=== PATIENT | female | born 1955 | race African-American/Black ===

== ENCOUNTER 2016-09-17 18:01 | Emergency (ER) ==
[2016-09-17 18:10] VITALS: BP 126/61; TEMP 99.6; BMI 24.9
--- NOTE | 2016-09-17 18:19 | ED.PDOC ---
General Stated Complaint: Right lower abdominal pain; started AM Time Seen by Physician: 18:18 Mode of Arrival: Wheelchair Information Source: Patient Exam Limitations: No limitations Nursing and Triage Documentation Reviewed and Agree: Yes <YUMIKO LORA - Last Filed: 09/17/16 18:18> <DANDRE GRAYSON Filed: 09/17/16 21:24> ED Provider: Dr. DANDRE GRAYSON Chief Complaint: Abdominal Pain Primary Care Provider: MARCE ROCHA[facility] Review of Systems - Review Of Systems Constitutional: Reports: Fever Respiratory: Reports: No symptoms GI: Reports: Abdominal pain, Nausea, Vomiting Skin: Reports: No symptoms Neurological: Reports: No symptoms All Other Systems: Reviewed and Negative <DANDRE GRAYSON Filed: 09/17/16 21:24> Past Medical History - Past Medical History Endocrine: Reports: Other Cardiovascular: Reports: Hypertension, Other Respiratory: Reports: Unknown Hematological: Reports: Unknown Gastrointestinal: Reports: Other Genitourinary: Reports: Other Neuro/Psych: Reports: Other Musculoskeletal: Reports: Other Cancer: Reports: Other Last Menstrual Period: hysterectomy - Surgical History General Surgical History: Reports: Unknown - Family History Family History: Reports: Unknown - Social History Smoking Status: Current every day smoker, Light tobacco smoker Hx Substance Use: No Alcohol Screening: Occasionally <YUMIKO LORA - Last Filed: 09/17/16 18:18> Physical Exam - Physical Exam Appearance: Ill-appearing Ill-appearing: Moderate Pain Distress: Severe Respiratory: Airway patent, Breath sounds clear, Breath sounds equal, Respirations nonlabored Cardiovascular: RRR, Pulses normal, No rub, No murmur GI/: Soft, Nontender, No masses, Bowel sounds normal, No Organomegaly Musculoskeletal: Normal strength, ROM intact, No edema, No calf tenderness Skin: Warm, Dry, Normal color Neurological: Sensation intact, Motor intact, Reflexes intact, Cranial nerves intact, Alert, Oriented Psychiatric: Anxious <DANDRE GRAYSON Last Filed: 09/17/16 21:24> Interpretation - Radiology Interpretation Radiology Interpretation By: Radiologist Radiology Results: Positive (Acute Appendicitis) <DANDRE GRAYSON Last Filed: 09/17/16 21:24> Critical Care Note - Critical Care Note Total Time (mins): 30 <DANDRE GRAYSON Filed: 09/17/16 21:24> Course - Course Hematology/Chemistry: 09/17/16 18:36 09/17/16 18:36 <DANDRE GRAYSON - Last Filed: 09/17/16 21:24> - Course Orders, Labs, Meds: Lab Review 09/17/16 09/17/16 18:36 19:45 WBC 10.36 H RBC 3.90 L Hgb 12.0 Hct 35.6 L MCV 91.3 MCH 30.8 MCHC 33.7 RDW Coeff of Pelon 13.5 Plt Count 262 Immature Gran % (Auto) 0.3 Neut % (Auto) 66.1 Lymph % (Auto) 22.7 [place] % (Auto) 10.0 Eos % (Auto) 0.6 Baso % (Auto) 0.3 Immature Gran # (Auto) 0.0 Neut # 6.9 Lymph # 2.4 [place] # 1.0 Eos # 0.1 Baso # 0.0 Sodium 136 Potassium 3.6 Chloride 100 Carbon Dioxide 26 Anion Gap 13.6 BUN 13 Creatinine 1.06 Estimated GFR (MDRD) 64.00 BUN/Creatinine Ratio 12.26 Glucose 107 Calcium 9.1 Total Bilirubin 0.67 AST 20 ALT 18 Alkaline Phosphatase 62 Total Protein 7.1 Albumin 3.3 L Globulin 3.8 Albumin/Globulin Ratio 0.87 Urine Color Yellow Urine Clarity Clear Urine pH 8.5 Ur Specific [place] 1.020 Urine Protein 1+ Urine Glucose (UA) Negative Urine Ketones Trace Urine Blood 1+ Urine Nitrite Negative Urine Bilirubin Negative Urine Urobilinogen 0.2 Ur Leukocyte Esterase Negative Urine Microscopic RBC 5-10 Ur Squamous Epith Cells 0-2 Orders Category Date Time Status CBC W/ AUTO DIFF Stat LAB 09/17/16 18:36 Completed COMPREHENSIVE METABOLIC PANEL Stat LAB 09/17/16 18:36 Completed URINALYSIS C & S IF INDICATED Stat LAB 09/17/16 19:45 Completed Acetaminophen [Tylenol] MEDS 09/17/16 20:08 Discontinued 650 mg PO ONCE STA Hydromorphone HCl [Dilaudid 1 mg/ml Syringe] MEDS 09/17/16 20:59 Discontinued 1 mg .ROUTE .STK-MED ONE Hydromorphone HCl [Dilaudid 1 mg/ml Syringe] MEDS 09/17/16 20:59 Discontinued 1 mg IVP ONCE STA Ketorolac Tromethamine [Toradol] MEDS 09/17/16 18:24 Discontinued 15 mg IVP ONCE STA Morphine Sulfate [Morphine 4 mg/ml Syringe] MEDS 09/17/16 19:09 Discontinued 4 mg IVP ONCE STA Ondansetron HCl/Pf [Zofran 4 mg/2 ml] MEDS 09/17/16 18:24 Discontinued 4 mg IVP ONCE STA Sodium Chloride 0.9% [Sodium Chloride] 1,000 ml MEDS 09/17/16 18:[address] ABD/PEL WO RENAL STONE PROT Stat RADS 09/17/16 19:08 Completed Medications Discontinued Medications Generic Name Dose Route Start Last Admin Trade Name Radha PRN Reason Stop Dose Admin Acetaminophen 650 mg 09/17/16 20:08 09/17/16 20:14 Tylenol PO 09/17/16 20:09 650 mg ONCE STA Administration Hydromorphone HCl 1 mg 09/17/16 20:59 09/17/16 21:05 Dilaudid 1 Mg/Ml Syringe IVP 09/17/16 21:00 1 mg ONCE STA Administration Sodium Chloride 1,000 mls @ 1,000 mls/hr 09/17/16 18:24 09/17/16 18:48 Sodium Chloride IV 09/17/16 19:23 1,000 mls/hr BOLUS STA Administration Ketorolac Tromethamine 15 mg 09/17/16 18:24 09/17/16 18:45 Toradol IVP 09/17/16 18:25 15 mg ONCE STA Administration Morphine Sulfate 4 mg 09/17/16 19:09 09/17/16 19:16 Morphine 4 Mg/Ml Syringe IVP 09/17/16 19:10 4 mg ONCE STA Administration Ondansetron HCl 4 mg 09/17/16 18:24 09/17/16 18:47 Zofran 4 Mg/2 Ml IVP 09/17/16 18:25 4 mg ONCE STA Administration Vital Signs: Temp Pulse Resp BP Pulse Ox 09/17/16 18:04 99.6 F 86 20 126/61 100 Departure <YUMIKO LORA - Last Filed: 09/17/16 18:18> - Departure Time of Disposition: 20:56 Pt referred to PMD for follow-up: Yes Pt. Stabilized Within Hospital's Capabilities/Transferred To: [facility] Transfer Form Completed: Yes Disposition Discussed With: Patient <DANDRE GRAYSON - Last Filed: 09/17/16 21:24> - Departure Disposition: TSF SHORT-TRM HOSP Discharge Problem: Acute appendicitis without mention of peritonitis Qualifiers: Acute appendicitis type: with localized peritonitis Qualifier Code: (K35.3) Acute appendicitis with localized peritonitis Condition: Stable Allergies/Adverse Reactions: Allergies bee wasp,fire ants Allergy (Severe, Uncoded 02/09/16 14:29) swelling itching medical alert necklace Home Medications: Ambulatory Orders Gabapentin [Neurontin] 300 mg PO TID 11/20/15 Oxycodone HCl/Acetaminophen [Xartemis Xr 7.5-325 mg Tablet] 1 each PO TID PRN Ranitidine HCl 150 mg PO DIRECTED 09/17/16 Ranitidine HCl 300 mg PO DAILY 09/17/16
[2016-09-17] MEDS ORDERED: SODIUM CHLORIDE 1,000 ML IV STA (18:24)
[2016-09-17] MEDS ORDERED: TORADOL IVP STA (18:24)
[2016-09-17] MEDS ORDERED: ZOFRAN 4 MG/2 ML IVP STA (18:24)
[2016-09-17 18:41] LABS: BASOPHILS % (AUTO) 0.3 % (0.0-3.0); EOSINOPHILS # (AUTO) 0.1 K/ul (0.0-0.7); EOSINOPHILS % (AUTO) 0.6 % (0.0-7.0); HEMATOCRIT 35.6 % (37.0-47.0); IMMATURE GRANULOCYTE % (AUTO) 0.3 % (0.0-5.0); LYMPHOCYTES # (AUTO) 2.4 K/uL (0.60-3.4); LYMPHOCYTES % (AUTO) 22.7 (10.0-50.0); MEAN CORPUSCULAR HEMOGLOBIN 30.8 pg (27.0-31.0); MEAN CORPUSCULAR HGB CONC 33.7 (31.8-35.4); MEAN CORPUSCULAR VOLUME 91.3 fl (81.0-99.0); NEUTROPHILS # (AUTO) 6.9 K/ul (2.0-6.9); NEUTROPHILS % (AUTO) 66.1; PLATELET COUNT 262 10^3/uL (140-440); WHITE BLOOD COUNT 10.36 K/ul (4.6-10.2)
[2016-09-17 18:59] LABS: ALBUMIN 3.3 g/dL (3.4-5.0); ALBUMIN/GLOBULIN RATIO 0.87; ANION GAP 13.6; BILIRUBIN,TOTAL 0.67 mg/dL (0.00-1.20); BUN/CREATININE RATIO 12.26; CALCIUM 9.1 mg/dL (8.2-10.2); CREATININE 1.06 mg/dL (0.60-1.30); POTASSIUM 3.6 mmol/L (3.5-5.10); TOTAL PROTEIN 7.1 g/dL (5.8-8.1)
[2016-09-17] MEDS ORDERED: MORPHINE 4 MG/ML SYRINGE IVP STA (19:09)
[2016-09-17 20:07] LABS: BILIRUBIN,URINE Negative (NEGATIVE); KETONES,URINE Trace (NEGATIVE); LEUKOCYTE ESTERASE ,URINE Negative (NEGATIVE); NITRITE,URINE Negative (NEGATIVE); PH,URINE 8.5 (5-9); PROTEIN,URINE 1+ (NEGATIVE); URINE, BLOOD 1+ (NEGATIVE)
[2016-09-17] MEDS ORDERED: TYLENOL PO STA (20:08)
[2016-09-17 20:10] LABS: ADD URINE MICROSCOPIC YES
--- NOTE | 2016-09-17 20:26 | CT ---
EXAM: CT of the abdomen and pelvis without contrast. HISTORY: Abdominal pain. Right lower quadrant pain. PROCEDURE: Contiguous axial CT images of the abdomen and pelvis without contrast with coronal and s agittal reformats. FINDINGS: The liver, gallbladder, pancreas, spleen, adrenal glands and kidneys are normal in appeara nce. The abdominal aorta is within normal limits in diameter. There are two appendicoliths in the a ppendix. The appendix is enlarged measuring 1.1 cm in diameter with adjacent inflammatory stranding consistent with acute appendicitis. There is diverticulosis of the colon with no evidence of diver ticulitis. No free air in the abdomen or pelvis. There is minimal free fluid in the pelvis. The b ladder is minimally filled which limits the evaluation. The uterus is surgically absent. There are degenerative changes in the spine. Impression: Acute appendicitis as described. Minimal free fluid in the pelvis. Diverticulosis of the colon. Hysterectomy. Critical result: Results discussed with the patient's ER physician on 09/17/2016 at 8:19 p.m.
[2016-09-17] MEDS ORDERED: DILAUDID 1 MG/ML SYRINGE IVP STA (20:59)
[2016-09-17] MEDS ORDERED: DILAUDID 1 MG/ML SYRINGE ONE (20:59)
== END 2016-09-17 21:27 | disposition short-term general hospital (02) ==
LOC: ED 18:01
DX: K35.3 Acute appendicitis with localized peritonitis (principal); I10 Essential (primary) hypertension; F17.210 Nicotine dependence, cigarettes, uncomplicated; Z79.899 Other long term (current) drug therapy
CPT/HCPCS: 36415; 74176; 80053; 81001; 85025; 96361; 96374; 96375; 99285

== ENCOUNTER 2016-09-17 21:26 | Outpatient (CLI) ==
[2016-09-17 18:10] VITALS: BMI 24.9
== END 2016-09-17 21:27 | disposition home or self-care (01) ==
LOC: AMBL 21:26
PROVIDERS: ATTEND Internal Medicine Geriatric Medicine
DX: K35.80 Unspecified acute appendicitis (principal)

== ENCOUNTER 2017-01-15 12:45 | Outpatient (CLI) ==
[2017-01-15 13:18] LABS: BASOPHILS # (AUTO) 0.1 K/uL (0-0.2); BASOPHILS % (AUTO) 0.8 % (0.0-3.0); EOSINOPHILS # (AUTO) 0.1 K/ul (0.0-0.7); EOSINOPHILS % (AUTO) 1.7 % (0.0-7.0); HEMATOCRIT 36.1 % (37.0-47.0); HEMOGLOBIN 11.8 g/dl (12.0-16.0); IMMATURE GRANULOCYTE % (AUTO) 0.3 % (0.0-5.0); LYMPHOCYTES # (AUTO) 2.4 K/uL (0.60-3.4); LYMPHOCYTES % (AUTO) 39.9 (10.0-50.0); MEAN CORPUSCULAR HGB CONC 32.7 (31.8-35.4); MEAN CORPUSCULAR VOLUME 94.8 fl (81.0-99.0); MONOCYTES # (AUTO) 0.6 K/uL (0.4-2.0); MONOCYTES % (AUTO) 10.1 (0-10); NEUTROPHILS # (AUTO) 2.9 K/ul (2.0-6.9); NEUTROPHILS % (AUTO) 47.2; PLATELET COUNT 283 10^3/uL (140-440); RED BLOOD COUNT 3.81 10^6/ul (4.20-5.40); WHITE BLOOD COUNT 6.06 K/ul (4.6-10.2)
[2017-01-15 13:38] LABS: ALBUMIN 3.1 g/dL (3.4-5.0); ALBUMIN/GLOBULIN RATIO 0.72; ANION GAP 13.1; BILIRUBIN,TOTAL 0.5 mg/dL (0.00-1.20); BUN/CREATININE RATIO 17.02; CALCIUM 9.6 mg/dL (8.2-10.2); CHOL/HDL RATIO 4.3 (4.5-5.5); CREATININE 0.94 mg/dL (0.60-1.30); POTASSIUM 4.1 mmol/L (3.5-5.10); TOTAL PROTEIN 7.4 g/dL (5.8-8.1)
== END 2017-01-15 12:46 | disposition home or self-care (01) ==
LOC: LAB 12:45
PROVIDERS: ATTEND Nurse Practitioner Family
DX: E78.5 Hyperlipidemia, unspecified (principal); I10 Essential (primary) hypertension; F41.9 Anxiety disorder, unspecified
CPT/HCPCS: 36415; 80053; 80061; 84443; 85025

== ENCOUNTER 2017-01-19 08:13 | Outpatient (CLI) ==
--- NOTE | 2017-01-20 10:08 | MAMMO ---
EXAM: Digital screening mammogram with 3-D tomosynthesis and CAD HISTORY: Screening mammogram COMPARISON: Mammogram 09/18/2015 FINDINGS: Bilateral CC and MLO views of the breasts were performed digitally and demonstrate predomi nantly fatty breast density. 3-D tomosynthesis is normal. There is no abnormal nodule or calcificati on. There is no significant interval change. IMPRESSION: No suspicious or new nodule or calcification RECOMMENDATION: Annual screening mammogram BIRADS category 1: Negative
== END 2017-01-19 08:14 | disposition home or self-care (01) ==
LOC: RAD 08:13
PROVIDERS: ATTEND Nurse Practitioner Family
DX: Z12.31 Encounter for screening mammogram for malignant neoplasm of breast (principal)
CPT/HCPCS: 77067

== ENCOUNTER 2017-05-11 12:28 | Outpatient (CLI) | END 2017-05-11 12:29 | disposition home or self-care (01) | LOC: LAB 12:28 | PROVIDERS: ATTEND Nurse Practitioner Family | DX: J02.9 Acute pharyngitis, unspecified (principal) | CPT/HCPCS: 87651 ==

== ENCOUNTER 2017-07-07 09:20 | Outpatient (CLI) | END 2017-07-07 09:21 | disposition home or self-care (01) | LOC: RHC-LAB 09:20 | PROVIDERS: ATTEND Nurse Practitioner Family | DX: E78.5 Hyperlipidemia, unspecified (principal); I10 Essential (primary) hypertension; K21.9 Gastro-esophageal reflux disease without esophagitis; R94.6 Abnormal results of thyroid function studies | CPT/HCPCS: 36415; 80053; 80061; 84443; 85025 ==

== ENCOUNTER 2017-07-31 13:58 | Emergency (ER) ==
[2017-07-31 14:03] VITALS: BP 92/59; TEMP 98.8; BMI 22.6
--- NOTE | 2017-07-31 14:32 | ED.PDOC ---
General ED Provider: Dr. FREEDOM MURILLO Chief Complaint: Respiratory Complaint Stated Complaint: Having chills and flu symptoms, onset yesterday with worsening through this morning. Went to work at [employer] and had to leave work due her worsening symptoms. Also experiencing chest palpitations and shortness of breath. Time Seen by Physician: 15:20 Mode of Arrival: Walk-In Information Source: Patient Exam Limitations: No limitations Primary Care Provider[facility] Nursing and Triage Documentation Reviewed and Agree: Yes Reviewed sepsis parameters & appropriate labs ordered?: Yes System Inflammatory Response Syndrome: Pulse >90 BPM, Resp >20/Minute Sepsis Protocol: For patient's 13 years and over: Temp is 96.8 and below OR 101 and greater Pulse >90 BPM Resp >20/minute Acutely Altered Mental Status Are patient's symptoms suggestive of a new infection, such as: -Pneumonia -Skin, Soft Tissue -Endocarditis -UTI -Bone, Joint Infection -Implantable Device -Acute Abdominal Infection -Wound Infection -Meningitis -Blood Stream Catheter Infection -Unknown System Inflammatory Response Syndrome: Not Applicable Respiratory Complaint Exam - Respiratory Complaint/Exam Symptoms Are: Still present Timing: Constant Initial Severity: Moderate Current Severity: Moderate Location: Throat, Chest Character: Reports: Productive cough Aggravating: Reports: Exertion Alleviating: Reports: None Associated Signs and Symptoms: Reports: Dyspnea, Chills, Sore throat History of Healthcare-Acquired Pneumonia: No Related Surgical History: Reports: None Pulmonary Embolism Risk Factors: None Cardiac Risk Factors: Reports: None Pseudomonas Risk Factors: Reports: None Tuberculosis Risk Factors: Reports: None Status Asthmaticus Risk Factors: Reports: None Home Oxygen Use: No Recent Stress Test: No Recent Echo/LV Function: No Current Antibiotic Use: No Respiratory Distress: None Inadequate Respiratory Effort: No Dysphagia Present: No Stridor Present: No JVD Present: No Accessory Muscle Use: No Retractions: Not Present Diminished Breath Sounds: No Sinus Tenderness: None Grunting Respirations: No Kussmaul Respirations: No Differential Diagnoses: URI, Influenza Non-Traumatic Chest Pain Syncope: EKG Performed Review of Systems - Review Of Systems Constitutional: Reports: No symptoms, Chills Eyes: Reports: No symptoms Ears, Nose, Mouth, Throat: Reports: No symptoms Respiratory: Reports: No symptoms, Cough, Short of air Cardiac: Reports: No symptoms, Other (tightness) GI: Reports: No symptoms : Reports: No symptoms Musculoskeletal: Reports: No symptoms Skin: Reports: No symptoms Neurological: Reports: No symptoms Endocrine: Reports: No symptoms Hematologic/Lymphatic: Reports: No symptoms All Other Systems: Reviewed and Negative Past Medical History - Past Medical History Endocrine: Reports: Other Cardiovascular: Reports: Hypertension, Other Respiratory: Reports: Unknown Hematological: Reports: Unknown Gastrointestinal: Reports: Other Genitourinary: Reports: Other Neuro/Psych: Reports: Other Musculoskeletal: Reports: Other Cancer: Reports: Other Last Menstrual Period: HYSTERECTOMY - Surgical History General Surgical History: Reports: Unknown - Family History Family History: Reports: Unknown - Social History Smoking Status: Current every day smoker, Light tobacco smoker Hx Substance Use: No Alcohol Screening: Occasionally - Immunizations Tetanus Shot up to Date: No Physical Exam - Physical Exam Appearance: Ill-appearing, No pain distress, Well-nourished Ill-appearing: Moderate Pain Distress: Mild Eyes: JOSE, EOMI, Conjunctiva clear ENT: Ears normal, Nose normal, Oropharynx normal Respiratory: Airway patent, Breath sounds clear, Breath sounds equal, Respirations nonlabored Cardiovascular: RRR, Pulses normal, No rub, No murmur GI/: Soft, Nontender, No masses, Bowel sounds normal, No Organomegaly Musculoskeletal: Normal strength, ROM intact, No edema, No calf tenderness Skin: Warm, Dry, Normal color Neurological: Sensation intact, Motor intact, Reflexes intact, Cranial nerves intact, Alert, Oriented Psychiatric: Affect appropriate, Mood appropriate Interpretation - Radiology Interpretation Radiology Interpretation By: ED Physician Radiology Results: No acute changes (Lab reviewed) Exam Interpreted: CXR Critical Care Note - Critical Care Note Total Time (mins): 0 Course - Course Hematology/Chemistry: 07/31/17 15:05 Orders, Labs, Meds: Lab Review 07/31/17 07/31/17 14:42 15:05 WBC 5.09 RBC 3.99 L Hgb 12.4 Hct 36.6 L MCV 91.7 MCH 31.1 H MCHC 33.9 RDW Coeff of [place] 12.9 Plt Count 264 Immature Gran % (Auto) 0.2 Neut % (Auto) 46.4 Lymph % (Auto) 35.0 [place] % (Auto) 14.5 H Eos % (Auto) 3.3 Baso % (Auto) 0.6 Immature Gran # (Auto) 0.0 Neut # (Auto) 2.4 Lymph # (Auto) 1.8 [place] # (Auto) 0.7 Eos # (Auto) 0.2 Baso # (Auto) 0.0 Influ A Molecular Assay Negative by naat Influ B Molecular Assay Positive by naat H Orders Category Date Time Status EKG-(ED ONLY) Stat CARDIO 07/31/17 14:37 Completed IV [ED IV/MEDIPORT/POWERPORT] .ONCE EMERGENCY 07/31/17 14:37 Active BLOOD CULTURE (ED ONLY) Stat LAB 07/31/17 15:05 Received CBC W/ AUTO DIFF Stat LAB 07/31/17 15:05 Completed CMP [COMPREHENSIVE METABOLIC PANEL] Stat LAB 07/31/17 15:05 Received FLU A & B MOLECULAR [FLU A/B MOLECULAR] Stat LAB 07/31/17 14:42 Completed LACTIC ACID Stat LAB 07/31/17 15:05 Received PROCALCITONIN Stat LAB 07/31/17 15:05 Received RAPID STREP SCREEN [MOLECULAR GROUP A STREP] Stat LAB 07/31/17 14:42 Completed TROPONIN I Stat LAB 07/31/17 15:05 Received UA [URINALYSIS C & S IF INDICATED] Stat LAB 07/31/17 14:37 Uncollected 0.9 % Sodium Chloride [Saline Flush] MEDS 07/31/17 14:36 Ordered 1 syr IVF PRN PRN CHEST, 2 VIEWS PA & LAT Stat RADS 07/31/17 14:36 Taken Medications Generic Name Dose Route Start Last Admin Trade Name Freq PRN Reason Stop Dose Admin Sodium Chloride 1 syr 07/31/17 14:36 07/31/17 14:58 Saline Flush IVF 1 syr PRN PRN Administration To flush IV Vital Signs: Temp Pulse Resp BP Pulse Ox 07/31/17 13:59 98.8 F 126 H 22 92/59 L 98 Departure - Departure Time of Disposition: 15:45 Disposition: HOME SELF-CARE Discharge Problem: Influenza due to influenza virus, type B Instructions: Influenza (ED) Condition: Good Pt referred to PMD for follow-up: Yes (next Wednesday) IPMP verified?: No Allergies/Adverse Reactions: Allergies bee wasp,fire ants Allergy (Severe, Uncoded 07/31/17 14:03) swelling itching medical alert necklace Home Medications: Ambulatory Orders Oxycodone HCl/Acetaminophen [Xartemis Xr 7.5-325 Mg Tablet] 1 each PO TID PRN Gabapentin [Neurontin] 600 mg PO QID tab-cap 05/13/17 Temazepam 15 mg PO DAILY 07/15/17 Oseltamivir Phosphate [Tamiflu] 75 mg PO Q12HR #10 ml 07/31/17 Transfer Form Completed: No Disposition Discussed With: Patient, Family
--- NOTE | 2017-08-01 07:22 | DI ---
EXAM: PA and lateral views of the chest HISTORY: Chest congestion COMPARISON: None available FINDINGS: No focal consolidation, pleural effusion or pneumothorax is identified. There is minimal right upper lung zone probable scarring. The cardiomediastinal silhouette is within normal limits. Multiple calcified mediastinal lymph nodes are present. There are mild degenerative changes of the thoracic spine. IMPRESSION: No acute cardiopulmonary findings. Calcified mediastinal lymph nodes suggesting prior granulomatous infection.
== END 2017-07-31 16:00 | disposition home or self-care (01) ==
LOC: ED 13:58
DX: J10.1 Influenza due to other identified influenza virus with other respiratory manifestations (principal); R06.02 Shortness of breath; F17.210 Nicotine dependence, cigarettes, uncomplicated
CPT/HCPCS: 36415; 80053; 83605; 84145; 84484; 85025; 87040; 87502; 87651; 93005; 93010; 99284

== ENCOUNTER 2017-08-24 09:43 | Outpatient (CLI) | END 2017-08-24 09:44 | disposition home or self-care (01) | LOC: RHC-LAB 09:43 | PROVIDERS: ATTEND Nurse Practitioner Family | DX: E78.5 Hyperlipidemia, unspecified (principal) | CPT/HCPCS: 36415; 80053; 80061 ==

== ENCOUNTER 2017-12-14 10:20 | Outpatient (CLI) ==
--- NOTE | 2017-12-14 11:01 | US ---
EXAM: Thyroid ultrasound History: Lower thyroid stimulating hormone Technique: Multiple sonographic images through the thyroid gland were obtained. Color duplex Dopple r was used to interrogate vascular flow. Findings: The right lobe of the thyroid measures 4.4 cm x 1.4 cm x 1.5 cm and is without discrete nodule identi fied. The thyroid isthmus measures 0.2 cm in thickness. The left lobe of the thyroid measures 4.0 cm x 1.4 cm x 1.5 cm and is without discrete nodule identif ied. No extrathyroidal masses are identified. The thyroid gland is not hypervascular. Impression: Normal thyroid ultrasound
== END 2017-12-14 10:21 | disposition home or self-care (01) ==
LOC: RAD 10:20
PROVIDERS: ATTEND Nurse Practitioner
DX: R94.6 Abnormal results of thyroid function studies (principal)

== ENCOUNTER 2017-12-28 11:33 | Outpatient (CLI) | END 2017-12-28 11:34 | disposition home or self-care (01) | LOC: RHC-LAB 11:33 | PROVIDERS: ATTEND Nurse Practitioner Family | DX: E78.5 Hyperlipidemia, unspecified (principal) | CPT/HCPCS: 36415; 80053; 80061 ==

== ENCOUNTER 2018-03-02 14:12 | Outpatient (CLI) | END 2018-03-02 14:13 | disposition home or self-care (01) | LOC: CAR 14:12 | PROVIDERS: ATTEND Nurse Practitioner Family | DX: R00.2 Palpitations (principal); I49.3 Ventricular premature depolarization | CPT/HCPCS: 93005; 93010 ==

== ENCOUNTER 2018-09-01 11:44 | Outpatient (CLI) ==
--- NOTE | 2018-09-01 13:37 | CT ---
EXAM: CT of the abdomen pelvis with contrast History: Lower abdominal pain, diarrhea, loss of appetite Comparison: CT abdomen pelvis 02/09/2016 Technique: Multiplanar CT images through the abdomen pelvis were obtained following administration o f IV contrast Findings: Lung bases are clear. No acute osseous abnormalities. Moderate to severe degenerative di sc disease at L5-S1. No gallstones identified by CT. A few tiny hepatic cysts. No hydronephrosis. No perinephric strand ing. No renal masses. Pancreas is unremarkable. Mild to moderate atherosclerotic vascular calcific ations. The appendix is not seen. There are no secondary signs of appendicitis. Adrenal glands are unremarkable. No bowel obstruction. Moderate stool seen within the ascending colon and cecum. Col onic diverticulosis. No free air and no ascites. No darrian inflammatory stranding. Bladder is not w ell distended. No bladder wall thickening. No perirectal inflammation. No pathologically enlarged lymph nodes. No abdominal aortic aneurysm. Impression: 1. No acute intra-abdominal or pelvic process. 2. Moderate stool within the ascending colon and cecum. 3. Atherosclerotic vascular disease. 4. Colonic diverticulosis. 5. Tiny sub-centimeter hepatic lesions are too small to characterize accurately by CT but most likel y represents cysts. 6. Moderate to severe degenerative disc disease at L5-S1
== END 2018-09-01 11:45 | disposition home or self-care (01) ==
LOC: RAD 11:44
PROVIDERS: ATTEND Nurse Practitioner Family
DX: R10.9 Unspecified abdominal pain (principal); R10.817 Generalized abdominal tenderness; R53.83 Other fatigue; R63.0 Anorexia; R19.7 Diarrhea, unspecified
CPT/HCPCS: 36415; 80053; 80061; 82150; 83690; 84443; 85025

== ENCOUNTER 2018-09-05 10:14 | Outpatient (CLI) | END 2018-09-05 10:15 | disposition home or self-care (01) | LOC: RHC-LAB 10:14 → FCC-LAB 10:15 | PROVIDERS: ATTEND Family Medicine | DX: R79.89 Other specified abnormal findings of blood chemistry (principal); K29.70 Gastritis, unspecified, without bleeding; E55.9 Vitamin D deficiency, unspecified | CPT/HCPCS: 36415; 82306; 84439; 84480; 87338 ==

== ENCOUNTER 2018-09-07 11:11 | Outpatient (CLI) | END 2018-09-07 11:12 | disposition home or self-care (01) | LOC: RHC-LAB 11:11 → FCC-LAB 11:12 | PROVIDERS: ATTEND Family Medicine | DX: K29.70 Gastritis, unspecified, without bleeding (principal) ==